=== PATIENT | male | born 2005 | race Two or more races ===

== ENCOUNTER 2024-10-31 13:41 | Emergency (ER) | payer OTHER ==
[~2024-10-31] VITALS: Ht 170.2 cm; Wt 77.1 kg
[2024-10-31] MEDS ORDERED: DEXAMETHASONE SODIUM PHOSPHATE 4 MG/ML VIAL IM STA (14:33)
[2024-10-31] MEDS ORDERED: DEXAMETHASONE SODIUM PHOSPHATE 4 MG/ML VIAL ONE (14:37)
== END 2024-10-31 14:48 | disposition home or self-care (01) ==
LOC: ER 13:43
DX: S05.11XA Contusion of eyeball and orbital tissues, right eye, initial encounter (principal); W22.8XXA Striking against or struck by other objects, initial encounter; Y93.89 Activity, other specified; Y92.89 Other specified places as the place of occurrence of the external cause; Z88.6 Allergy status to analgesic agent
CPT/HCPCS: 96372; 99282; J1100

== ENCOUNTER 2024-11-09 08:57 | Emergency (ER) | payer OTHER ==
[~2024-11-09] VITALS: Ht 170.2 cm; Wt 77.1 kg
[2024-11-09] MEDS ORDERED: TOBRADEX ST EYE5 ML OP (12:09)
== END 2024-11-09 12:19 | disposition home or self-care (01) ==
LOC: ER 09:00
DX: H10.89 Other conjunctivitis (principal); Z88.6 Allergy status to analgesic agent